=== PATIENT | female | born 1945 | race Caucasian/White ===

== ENCOUNTER 2018-02-28 | Inpatient (IN) | payer MEDICARE ==
[2018-02-28] MEDS ORDERED: ONDANSETRON HCL/PF 4 MG/2 ML VIAL ONE (00:23)
[2018-02-28] MEDS ORDERED: MORPHINE SULFATE INJ 4 MG/ML DISP.SYRIN ONE (00:24)
[2018-02-28] MEDS ORDERED: MORPHINE SULFATE INJ 2 MG/ML DISP.SYRIN IV ONE (00:30)
[2018-02-28] MEDS ORDERED: ONDANSETRON HCL/PF 4 MG/2 ML VIAL IVP ONE (00:30)
[2018-02-28] MEDS ORDERED: IV NS 0.9% 1,000 ML BAG IV ONE (00:30)
[2018-02-28] MEDS ORDERED: HYDROMORPHONE INJ 2 MG/ML DISP.SYRIN ONE ×2 (00:51→02:15)
[2018-02-28] MEDS ORDERED: HYDROMORPHONE 1 MG/1 ML DISP.SYRIN IV ONE ×2 (01:00→02:30)
[2018-02-28] MEDS ORDERED: PIPERACILLIN /TAZOBACTAM 3.375 G VIAL IV ONE ×2 (02:10→05:15)
[2018-02-28] MEDS ORDERED: PIPERACILLIN /TAZOBACTAM 3.375 G in IV D5W 50 ML IV ONE (02:30)
[2018-02-28] MEDS ORDERED: MAG HYDROX/AL HYDROX/SIMETH 30 ML UDC PO PRN (03:00)
[2018-02-28] MEDS ORDERED: MORPHINE SULFATE INJ 2 MG/ML DISP.SYRIN IV PRN (03:00)
[2018-02-28] MEDS ORDERED: MAGNESIUM HYDROXIDE 30 ML UDC PO PRN (03:00)
[2018-02-28] MEDS ORDERED: ACETAMINOPHEN 325 MG TABLET PO PRN (03:00)
[2018-02-28] MEDS ORDERED: Z GUARD REMEDY 2 OZ OINT TP PRN (03:00)
[2018-02-28] MEDS: IV NS 0.9% 1,000 ML IV PRN (03:24)
[2018-02-28] MEDS: PIPERACILLIN /TAZOBACTAM 3.375 G in IV D5W 50 ML IV SCH ×3 (06:51→17:49)
[2018-02-28] MEDS ORDERED: MORPHINE SULFATE INJ 4 MG/ML DISP.SYRIN IV PRN ×3 (07:00→15:00)
[2018-02-28] MEDS: ONDANSETRON HCL/PF 4 MG/2 ML VIAL IVP PRN (08:19)
[2018-02-28] MEDS ORDERED: ESTR1TAB21 PO (08:20)
[2018-02-28] MEDS ORDERED: TRAM50TA2 PO (08:20)
[2018-02-28] MEDS ORDERED: TRAZ-182 PO (08:20)
[2018-02-28] MEDS ORDERED: DULO30CA2 PO (08:20)
[2018-02-28] MEDS ORDERED: HYDR-548 PO (08:20)
[2018-02-28] MEDS: HYDROCODONE/APAP 5/325MG 1 EACH TABLET PO PRN (10:32)
[2018-02-28] MEDS ORDERED: FLUCONAZOLE IN NS 100 MG in PREMIX 1 EA IV ONE ×2 (12:00)
[2018-02-28] MEDS ORDERED: FENTANYL PF 100MCG/2ML AMPUL IV PRN (14:30)
[2018-03-01] MEDS: PIPERACILLIN /TAZOBACTAM 3.375 G in IV D5W 50 ML IV SCH ×5 (00:15→23:34)
[2018-03-01] MEDS: IV NS 0.9% 1,000 ML IV PRN ×2 (00:17→17:18)
[2018-03-01] MEDS: HYDROCODONE/APAP 5/325MG 1 EACH TABLET PO PRN (09:23)
[2018-03-01] MEDS ORDERED: HYDROMORPHONE 1 MG/1 ML DISP.SYRIN IV PRN (12:30)
[2018-03-01] MEDS ORDERED: HYDROMORPHONE INJ 2 MG/ML DISP.SYRIN IV PRN ×2 (12:30→14:30)
[2018-03-01] MEDS: ONDANSETRON HCL/PF 4 MG/2 ML VIAL IVP PRN (17:18)
[2018-03-01] MEDS ORDERED: diphenhydrAMINE HCL 25 MG CAPSULE PO ONE (22:30)
[2018-03-02] MEDS: PIPERACILLIN /TAZOBACTAM 3.375 G in IV D5W 50 ML IV SCH ×4 (05:41→23:56)
[2018-03-02] MEDS: IV NS 0.9% 1,000 ML IV PRN (09:54)
[2018-03-02] MEDS ORDERED: TRAZODONE 50 MG TABLET PO SCH (22:00)
[2018-03-03] MEDS: PIPERACILLIN /TAZOBACTAM 3.375 G in IV D5W 50 ML IV SCH ×2 (06:02→11:49)
[2018-03-03] MEDS: IV NS 0.9% 1,000 ML IV PRN (07:18)
[2018-03-03] MEDS ORDERED: DULOXETINE HCL 30 MG CAPSULE.DR PO SCH (09:00)
[2018-03-03] MEDS ORDERED: ESTRADIOL 1 MG TABLET PO SCH (09:00)
[2018-03-03] MEDS ORDERED: POTASSIUM CHLORIDE 20 MEQ POWDER PACKET NG SCH (10:00)
== END 2018-03-03 15:45 | disposition home or self-care (01) | DRG 392 ==
DX: K57.32 Diverticulitis of large intestine without perforation or abscess without bleeding (principal); N20.0 Calculus of kidney; R73.9 Hyperglycemia, unspecified; Z90.49 Acquired absence of other specified parts of digestive tract; Z98.84 Bariatric surgery status; Z90.710 Acquired absence of both cervix and uterus; Z82.49 Family history of ischemic heart disease and other diseases of the circulatory system; Z80.9 Family history of malignant neoplasm, unspecified; K57.90 Diverticulosis of intestine, part unspecified, without perforation or abscess without bleeding